=== PATIENT | male | born 1970 | race Caucasian/White ===

== ENCOUNTER 2019-09-26 07:15 | Day surgery (SDC) | payer OTHER ==
[2019-09-19 16:01] LABS: BASOPHILS # (AUTO) 0.1 X10'3 (0-0.2); BASOPHILS % (AUTO) 0.8 % (0-1); EOSINOPHILS # (AUTO) 0.1 X10'3 (0-0.9); EOSINOPHILS % (AUTO) 1.5 % (0-6); LYMPHOCYTES # (AUTO) 1.8 X10'3 (1.1-4.8); LYMPHOCYTES % (AUTO) 22.7 % (21-51); MEAN CORPUSCULAR HEMOGLOBIN 30.9 PG (27.0-31.0); MEAN CORPUSCULAR HGB CONC 34.4 g/dL (33.0-36.5); MEAN CORPUSCULAR VOLUME 89.7 FL (78-98); MONOCYTES # (AUTO) 0.7 X10'3 (0-0.9); MONOCYTES % (AUTO) 9.1 % (2-12); NEUTROPHILS # (AUTO) 5.3 X10'3 (1.8-7.7); NEUTROPHILS % (AUTO) 65.9 % (42-75); PRE OP HEMATOCRIT 44.9 % (42.0-52.0); PRE OP HEMOGLOBIN 15.4 g/dL (14.0-17.9); PRE OP PLATELET COUNT 195 X10'3 (140-440); RED CELL DISTRIBUTION WIDTH 12.8 % (11.5-14.5)
[2019-09-19 16:13] LABS: ALBUMIN 3.6 G/DL (3.4-5.0); ALBUMIN/GLOBULIN RATIO 1.1 (1.1-1.5); ALKALINE PHOSPHATASE 96 IU/L (46-116); BLOOD UREA NITROGEN 19 MG/DL (7-18); BUN/CREATININE RATIO 16.4 (5.4-32.0); CALCIUM 8.4 MG/DL (8.5-10.1); CHLORIDE 106 MMOL/L (99-107); CREATININE 1.16 MG/DL (0.60-1.10); PRE OP ALT 60 U/L (30-65); PRE OP ANION GAP 8 (8-16); PRE OP AST 26 U/L (10-37); PRE OP BILIRUB, TOTAL 0.3 MG/DL (0.0-1.0); PRE OP GLUCOSE 101 MG/DL (70-104); PRE OP POTASSIUM 3.8 MMOL/L (3.4-5.1); PRE OP SODIUM 142 MMOL/L (135-145); TOTAL CARBON DIOXIDE 28.5 MMOL/L (24-32); eGFR 67 ML/MIN
[~2019-09-26] VITALS: Ht 182.9 cm; Wt 102.1 kg
[~2019-09-26 07:15] MED LIST: ATOR20TA66 PO; FISH OIL; LOSA100T57 PO; MENS MVI; ROPIVAcaine 0.5% (5mg/ml) 30ml vial ONE; TURM538C; VITAMIN D; ceFAZolin 1000mg inj ONE; cefazolin/dext.iso 2gm/100ml 100 ML IV ONE; famotidine 10mg tablet PO ONE; ringers solution, lacted 1,000 ML IV SCH
[2019-09-26 07:20] VITALS: BP 152/98
[2019-09-26] MEDS ORDERED: ROPIVAcaine 0.5% (5mg/ml) 30ml vial ONE ×2 (08:29→08:54)
[2019-09-26] MEDS ORDERED: ceFAZolin 1000mg inj ONE (08:29)
[2019-09-26] MEDS ORDERED: cloNIDine hcl/PF 100mcg/ml inj ONE (08:43)
[2019-09-26] MEDS ORDERED: fentaNYL/PF 50MCG/1 ML 2ML syringe ONE (08:49)
[2019-09-26] MEDS ORDERED: midazolam 2 mg/2 ml injection ONE ×2 (08:50)
[2019-09-26] MEDS ORDERED: propofol inj 20 ML IV ONE (08:55)
[2019-09-26] MEDS ORDERED: ringers solution, lacted 1,000 ML IV SCH (09:03)
[2019-09-26] MEDS ORDERED: proCHLORperazine 10 MG/2 ml inj IV PRN (09:05)
[2019-09-26] MEDS ORDERED: ketorolac trometh. 30mg/ml inj. IV ONE (09:05)
[2019-09-26] MEDS ORDERED: ondansetron/PF 4mg/2ml inj IV PRN (09:05)
[2019-09-26] MEDS ORDERED: meperidine/PF 25mg/ml syringe IV PRN ×3 (09:05)
[2019-09-26] MEDS ORDERED: morphine 4 MG/ML inj SYRINge IV PRN ×2 (09:05)
[2019-09-26] MEDS ORDERED: sevoflurane 250ml liquid IH ONE (09:08)
[2019-09-26] MEDS ORDERED: acetaminophen 1,000mg/100ml IV 100 ML IV ONE (11:10)
[2019-09-26 11:20] VITALS: BP 128/76
--- NOTE | 2019-09-26 11:20 | NUR ---
Received from OR via BED, accompanied by Anesthesiologist DR RICHARDSON-- and report given by Anesthesiolgist. PATIENT A&OX4, DENIES PAIN, V/S WNL, NEUROVASCULAR CHECKS INTACT, 20G PIV LUE, SCD ON, DRESSING TO LEFT KNEE CDI WITH CHRISTINA BRACE LOCKED IN 10-90 DEGREES
[2019-09-26 11:30] VITALS: BP 131/78
[2019-09-26 11:40] VITALS: BP 124/74
[2019-09-26 11:50] VITALS: BP 127/77
[2019-09-26 12:00] VITALS: BP 122/78
--- NOTE | 2019-09-26 12:00 | NUR ---
PATIENT A&OX4, DENIES PAIN, V/S WNL, NEUROVASCULAR CHECKS INTACT, 20G PIV LUE D/C, SCD OFF, DRESSING TO LEFT KNEE CDI WITH CHRISTINA BRACE LOCKED IN 10-90 DEGREES. CRUTCHES PROVIDED FOR PATIENT. I HAVE REVIEWED D/C INSTRUCTIONS WITH PATIENT AND FAMILY AND THEY HAVE VERBALIZED UNDERSTANDING. PATIENT D/C HOME WITH ALL BELONGINGS AND FAMILY GAVE TRANSPORT HOME.
== END 2019-09-26 12:00 | disposition home or self-care (01) ==
LOC: PAS 07:15
PROVIDERS: ATTEND Orthopaedic Surgery
DX: S83.242A Other tear of medial meniscus, current injury, left knee, initial encounter (principal); S83.282A Other tear of lateral meniscus, current injury, left knee, initial encounter; M96.89 Other intraoperative and postprocedural complications and disorders of the musculoskeletal system; G89.18 Other acute postprocedural pain; I10 Essential (primary) hypertension; Z79.899 Other long term (current) drug therapy; Z98.890 Other specified postprocedural states; Z87.442 Personal history of urinary calculi; X58.XXXA Exposure to other specified factors, initial encounter; Y93.89 Activity, other specified; Y92.89 Other specified places as the place of occurrence of the external cause; Y99.8 Other external cause status; Y83.8 Other surgical procedures as the cause of abnormal reaction of the patient, or of later complication, without mention of misadventure at the time of the procedure; Y82.8 Other medical devices associated with adverse incidents
CPT/HCPCS: 29880; 29888; 36415; 64447; 80053; 82948; 85025; 93005; C1713; J0131; J0690; J0735; J2250; J2704; J3010; J7120; L1832; A4215; A4618; A6449; A7000; J2795